=== PATIENT | female | born 1955 | race Caucasian/White ===

== ENCOUNTER 2023-03-04 04:59 | Day surgery (SDC) | payer OTHER ==
[2023-03-03 13:39] VITALS: BMI 20.2
[2023-03-04] MEDS ORDERED: HEPARIN NA (PORCINE) 5,000 UNITS/ML 1ML VIAL ONE ×3 (07:23→08:50)
[2023-03-04] MEDS ORDERED: LIDOCAINE HCL/PF 1% SDV 5ML VIAL ONE (07:27)
[2023-03-04] MEDS ORDERED: MIDAZOLAM HCL 2 MG/2 ML SINGLE DOSE VIAL ONE (08:04)
[2023-03-04] MEDS ORDERED: PROPOFOL 20 ML ONE (08:04)
[2023-03-04] MEDS ORDERED: ONDANSETRON 4 MG/2 ML VIAL ONE (08:19)
[2023-03-04] MEDS ORDERED: ceFAZolin SODIUM 1 GM VIAL ONE (08:26)
[2023-03-04] MEDS ORDERED: LIDOCAINE HCL 1%, 10 MG/ML (50 mL VIAL) INF ONE (08:28)
[2023-03-04] MEDS ORDERED: KETOROLAC TROMETHAMINE 30 MG/1 ML VIAL ONE (09:33)
[2023-03-04] MEDS ORDERED: PROTAMINE SULFATE 50 MG/5 ML VIAL ONE (09:48)
[2023-03-04] MEDS ORDERED: oxyCODONE HCL 5 MG TABLET PO PRN ×2 (10:12→10:17)
[2023-03-04] MEDS ORDERED: ONDANSETRON 4 MG/2 ML VIAL IVPUSH PRN (10:12)
[2023-03-04] MEDS ORDERED: LACTATED RINGERS SOLUTION 1,000 ML IV SCH (10:15)
[2023-03-04] MEDS ORDERED: ACETAMINOPHEN 325 MG TABLET (FP) PO PRN (10:17)
[2023-03-04 13:54] VITALS: RESP 20; TEMP 97.1
[2023-03-04 13:59] VITALS: BP 151/89; PULSE 72
== END 2023-03-04 13:42 | disposition home or self-care (01) ==
LOC: JASU-SURG 04:59
PROVIDERS: ATTEND Surgery
PROC: 047M3ZZ Dilation of Right Popliteal Artery, Percutaneous Approach (ICD-10-PCS; 2023-03-04)
PROC: 047T3ZZ Dilation of Right Peroneal Artery, Percutaneous Approach (ICD-10-PCS; 2023-03-04)
PROC: 047K3ZZ Dilation of Right Femoral Artery, Percutaneous Approach (ICD-10-PCS; principal; 2023-03-04 08:00)
DX: L97.519 Non-pressure chronic ulcer of other part of right foot with unspecified severity (principal)
CPT/HCPCS: 76000-TC-FY; 82962; 94760; C1725; C1760; C1769; C1894; J1644